=== PATIENT | female | born 1965 | race Two or more races ===

== ENCOUNTER 2021-06-15 08:00 | Outpatient (CLI) | payer OTHER | END 2021-06-15 08:30 | disposition home or self-care (01) | LOC: PPH VACUNA 08:00 | PROVIDERS: ATTEND Emergency Medicine Pediatric Emergency Medicine | DX: Z23 Encounter for immunization (principal) ==

== ENCOUNTER 2023-09-12 11:48 | Outpatient (CLI) | payer OTHER | END 2023-09-12 12:10 | disposition home or self-care (01) | LOC: MRI 11:48 | DX: M54.59 Other low back pain (principal) | CPT/HCPCS: 72148 ==